=== PATIENT | female | born 1980 | race Two or more races ===

== ENCOUNTER 2016-11-03 19:32 | Emergency (ER) | payer MEDICAID, OTHER, SELFPAY ==
[~2016-11-03] VITALS: Ht 152.4 cm; Wt 57.3 kg
[2016-11-03 19:33] VITALS: BP 113/69
[2016-11-03] MEDS ORDERED: BACITRACIN ZINC OINT 500U/GM, 0.9 GM ONE (20:10)
[2016-11-03] MEDS ORDERED: DIPH,PERTUSS(ACELL),TET VAC/PF 0.5 ML IM-VACC ONE ×2 (20:14→20:30)
== END 2016-11-03 21:29 | disposition home or self-care (01) ==
LOC: ED 21:00
DX: S61.250A Open bite of right index finger without damage to nail, initial encounter (principal); W55.01XA Bitten by cat, initial encounter; Y93.89 Activity, other specified; Y92.89 Other specified places as the place of occurrence of the external cause; Y99.8 Other external cause status
CPT/HCPCS: 90471; 90715